=== PATIENT | male | born 1965 | race American Indian/Alaskan Native ===

== ENCOUNTER 2018-11-09 17:50 | Emergency (ER) | payer MEDICARE ==
[2018-11-09 18:03] VITALS: BMI 41.2
[2018-11-09] MEDS ORDERED: Oxycodone/Acetaminophen 5/325 mg Tab PO STA (18:31)
--- NOTE | 2018-11-09 18:34 | C.PDOC ---
History Of Present Illness Patient is a 53yo M with a PMH HTN, gout BIBA for gout attack. He gets gout attacks every 3-4 months since being diagnosed in 2010. He admits to taking his allopurinol every day as directed, but didn't take it this morning when the pain started in his L knee. He also denies taking his anti- hypertensives today since it hurt too much ambulating. It feels like previous attacks in the past, which he's had in bilateral feet and knees. He tried to elevate his LE to decrease the swelling, however it did not help decrease the pain. He called 911 when the pain and swelling stopped him from bending his knee. Denies chest pain, palpitations, headache, dizziness, shortness of breath, abdominal pain, ankle pain, R LE pain, numbness. <Kina Dawson - Last Filed: 11/09/18 18:32> Patient seen and examined. Agree with history as provided. <Beatriz Montalvo - Last Filed: 11/09/18 21:00> History Per: Patient History/Exam Limitations: physical impairment Onset/Duration Of Symptoms: Hrs Current Symptoms Are (Timing): Worse Severity: Severe Pain Scale Rating Of: 10 (stabbing) - Hip Description Of Injury: Other Currently Unable To: Bear Weight, Straighten, Bend Or Move - Knee Currently Unable To: Bear Weight, Straighten, Bend Or Move Alleviating Factor(s): Elevation <Kina Dawson - Last Filed: 11/09/18 18:32> <Beatriz Montalvo - Last Filed: 11/09/18 21:00> Time Seen by Provider: 11/09/18 18:19 Chief Complaint (Nursing): Lower Extremity Problem/Injury Past Medical History Reviewed: Historical Data, Nursing Documentation, Vital Signs Vital Signs: Last Vital Signs Temp 98.4 F 11/09/18 18:03 Pulse 106 H 11/09/18 18:03 Resp 22 11/09/18 18:03 BP 194/106 H 11/09/18 18:03 Pulse Ox 97 11/09/18 18:03 - Medical History PMH: Arthritis Family History: States: No Known Family Hx Other Family History: mother - gout, OA - Social History Hx Alcohol Use: No Hx Substance Use: No - Immunization History Hx Tetanus Toxoid Vaccination: No Hx Influenza Vaccination: No Hx Pneumococcal Vaccination: No <Kina Dawson - Last Filed: 11/09/18 18:32> Vital Signs: Last Vital Signs Temp 98.4 F 11/09/18 18:03 Pulse 106 H 11/09/18 18:03 Resp 22 11/09/18 18:03 BP 194/106 H 11/09/18 18:03 Pulse Ox 97 11/09/18 20:44 <Beatriz Montalvo - Last Filed: 11/09/18 21:00> Review Of Systems Constitutional: Negative for: Fever, Chills, Sweats, Weakness, Malaise Cardiovascular: Negative for: Chest Pain, Palpitations, Light Headedness Respiratory: Negative for: Cough, Shortness of Breath, Wheezing Gastrointestinal: Negative for: Nausea, Vomiting, Abdominal Pain, Diarrhea, Constipation Genitourinary: Negative for: Dysuria, Frequency, Incontinence Musculoskeletal: Positive for: Leg Pain. Negative for: Neck Pain, Shoulder Pain, Arm Pain, Back Pain Neurological: Negative for: Weakness, Numbness, Dizziness <Kina Dawson - Last Filed: 11/09/18 18:32> Physical Exam - Physical Exam Appears: Well, No Acute Distress Skin: Normal Color, Warm, Dry Head: Atraumatic, Normacephalic Eye(s): bilateral: PERRL (prefers wearing sunglasses inside, denies photophobia), EOMI Oral Mucosa: Dry Cardiovascular: Rhythm Regular (tachycardic), No JVD Respiratory: Normal Breath Sounds, No Accessory Muscle Use, No Rales, No Rhonchi, No Wheezing Gastrointestinal/Abdominal: Normal Exam, Bowel Sounds, Soft, No Tenderness, No Distention, No Guarding Extremity: Tenderness, Swelling Extremity: Left: Joint Effusion (knee capsule swollen with TTP, no erythematous) Pulses: Left Radial: Normal, Right Radial: Normal, Left Dorsalis Pedis: Normal, Right Dorsalis Pedis: Normal (distal leg warm, good pulses, full active ROM) DTR: Bicep (R): 2+, Bicep (L): 2+, Knee (L): 2+, Ankle (R): 2+ Neurological/Psych: Oriented x3, Normal Speech, Normal Cognition, Normal Cranial Nerves <Kina Dawson - Last Filed: 11/09/18 18:32> ED Course And Treatment O2 Sat by Pulse Oximetry: 97 <Kina Dawson - Last Filed: 11/09/18 18:32> - Laboratory Results Result Diagrams: 11/09/18 19:01 11/09/18 19:01 Lab Results: Total Bilirubin 0.6 mg/dL (0.2-1.3) 11/09/18 19: AST 21 U/L (17-59) 11/09/18 19: ALT 12 U/L (21-72) L 11/09/18 19: Alkaline Phosphatase 89 U/L (38-126) 11/09/18 19: Total Protein 8.0 g/dL (6.3-8.3) 11/09/18: Albumin 4.3 g/dL (3.5-5.0) 11/09/18: Globulin 3.7 gm/dL (2.2-3.9) 11/09/18 19: Albumin/Globulin Ratio 1.2 (1.0-2.1) 11/09/18 19: Reevaluation Time: 20:58 Reassessment Condition: Improved (but continues to have pain in his knee and elevated BP. Advised importance of being compliant with medication and diet.) <Beatriz Montalvo - Last Filed: 11/09/18 21:00> Medical Decision Making Medical Decision Making: - labs - uric acid, serum - Percocet 1 tab for pain - PO Colchicine 1.2mg - 1L NS bolus 1944 re-eval, patient is still in pain. he has passive ROM but is still not able to move it actively. - PO Colchicine 0.6mg - Percocet 1 tab for pain 1999 re-eval, patient reports great improvement at rest, however is still unable to actively move his knee comfortably. Patient is able to move his knee actively. Still reports pain, however, is much improved. Patient recently moved from [place] and doesn't have a PMD in [place]. He is requesting refills of his medications. <Kina Dawson - Last Filed: 11/09/18 18:32> Disposition - Disposition Disposition Time: 20:36 <Kina Dawson - Last Filed: 11/09/18 18:32> <SelvinBeatriz Berg - Last Filed: 11/09/18 21:00> - Disposition Referrals: [facility] [Outside] Disposition: HOME/ ROUTINE Condition: IMPROVED Additional Instructions: Avoid taking Allopurinol until this acute attack is over. You have also been prescribed prednisone to tkae with the first day after this attack since NSAIDs are not recommended until your blood pressure is controlled. Please take your anti-hypertensives as prescribed. Do not skip, even if you are having a gout attack. You have been given a refill of your home anti-hypertensives. Please find a PMD that you like who takes Medicare to continue your treatment and to refill your medications. Prescriptions: Acetaminophen [Tylenol 325mg tab] 650 mg PO Q4H PRN #10 tab PRN Reason: Inflammation amLODIPine [Norvasc] 10 mg PO DAILY #14 tab Colchicine 0.6 mg PO TID #9 tablet Labetalol [Trandate] 100 mg PO TID #42 tab Prednisone 5 mg PO TID #3 [id number] Instructions: Gout (DC) Forms: mob[employer] (Setswana) - Clinical Impression Clinical Impression: Gout attack
[2018-11-09] MEDS ORDERED: Oxycodone/Acetaminophen 5/325 mg Tab ONE ×2 (18:54→19:56)
[2018-11-09 19:04] LABS: BASO % 0.3 % (0.0-2.0); EOS # 0.5 K/uL (0.0-0.7); LYMPH # 1.3 K/uL (1.0-4.3); LYMPH % 10.4 % (20.0-40.0); MEAN CELL VOLUME 79.1 fL (80.0-94.0); MEAN CORPUSCULAR HEMOGLOBIN 25.4 pg (27.0-31.0); MEAN CORPUSCULAR HGB CONC 32.2 g/dL (33.0-37.0); MEAN PLATELET VOLUME 8.2 fL (7.2-11.7); MONO # 1.3 K/uL (0.0-0.8); MONO % 10.3 % (0.0-10.0); NEUT # 9.6 K/uL (1.8-7.0); RBC 5.12 Mil/uL (4.40-5.90); RED CELL DISTRIBUTION WIDTH 16.7 % (11.5-14.5); WHITE BLOOD COUNT 12.8 K/uL (4.8-10.8)
[2018-11-09 19:16] LABS: ALB/GLOB RATIO 1.2 (1.0-2.1); ALBUMIN 4.3 g/dL (3.5-5.0); CALCIUM 9.4 mg/dl (8.6-10.4)
[2018-11-09] MEDS ORDERED: Sodium Chloride 0.9% 1,000 ML IV ONE (19:20)
[2018-11-09] MEDS ORDERED: Oxycodone/Acetaminophen 5/325 mg Tab PO ONE (19:46)
[2018-11-09 20:57] VITALS: RESP 16
[2018-11-09 22:12] VITALS: BP 164/82; PULSE 94; TEMP 98; O2SAT 98
== END 2018-11-09 22:12 | disposition home or self-care (01) ==
LOC: C.ER 17:50
DX: M10.9 Gout, unspecified (principal)
CPT/HCPCS: 80053; 84550; 85025; 96360; 99284; J7030